=== PATIENT | female | born 1990 | race Hispanic/Latino ===

== ENCOUNTER 2018-04-11 15:49 | Emergency (ER) | payer MEDICAID ==
[2018-04-11] MEDS ORDERED: TETANUS/DIPHTHERIA TOXOID [ADULT] 0.5 ML VIAL IM ONE (16:15)
== END 2018-04-11 16:30 | disposition home or self-care (01) ==
LOC: EDH 15:49
DX: S01.511A Laceration without foreign body of lip, initial encounter (principal); Z72.0 Tobacco use; W51.XXXA Accidental striking against or bumped into by another person, initial encounter; Y93.9 Activity, unspecified; Y92.098 Other place in other non-institutional residence as the place of occurrence of the external cause; Y99.8 Other external cause status
CPT/HCPCS: 90471; 90714

== ENCOUNTER 2018-06-02 20:32 | Emergency (ER) | payer MEDICAID, OTHER ==
[2018-06-02] MEDS ORDERED: KETOROLAC TROMETHAMINE 30MG/ML ONE (21:06)
== END 2018-06-02 21:24 | disposition home or self-care (01) ==
LOC: EDH 20:32
DX: S29.012A Strain of muscle and tendon of back wall of thorax, initial encounter (principal); Z90.49 Acquired absence of other specified parts of digestive tract; Z98.890 Other specified postprocedural states; Z72.0 Tobacco use; X58.XXXA Exposure to other specified factors, initial encounter; Y93.89 Activity, other specified; Y92.89 Other specified places as the place of occurrence of the external cause; Y99.8 Other external cause status
CPT/HCPCS: 96372; 99283; J1885

== ENCOUNTER 2019-12-14 06:19 | Emergency (ER) | payer SELFPAY ==
[2019-12-14] MEDS ORDERED: FAMOTIDINE 20MG TAB 20 MG TAB ONE (06:43)
[2019-12-14] MEDS ORDERED: DiphenhydrAMINE HCL 50 MG/ML VIAL ONE (06:43)
[2019-12-14] MEDS ORDERED: PREDNISONE 20 MG TABLET ONE (06:44)
== END 2019-12-14 07:07 | disposition home or self-care (01) ==
LOC: EDH 06:19
DX: L50.9 Urticaria, unspecified (principal); T78.40XA Allergy, unspecified, initial encounter; Z98.890 Other specified postprocedural states; Z90.49 Acquired absence of other specified parts of digestive tract; Z72.0 Tobacco use; X58.XXXA Exposure to other specified factors, initial encounter; Z91.09 Other allergy status, other than to drugs and biological substances; Z91.038 Other insect allergy status
CPT/HCPCS: 96372; 99283; J1200

== ENCOUNTER 2020-04-30 05:56 | Emergency (ER) | payer MEDICAID ==
[2020-04-30] MEDS ORDERED: FAMOTIDINE 20MG TAB 20 MG TAB ONE (06:22)
[2020-04-30] MEDS ORDERED: DiphenhydrAMINE HCL 50 MG/ML VIAL ONE (06:23)
[2020-04-30] MEDS ORDERED: METHYLPREDNISOLONE SOD SUCC 125MG/2ML VIAL ONE (06:23)
[2020-04-30] MEDS ORDERED: ACETAMINOPHEN EXTRA STRENGTH 500 MG TABLET ONE (06:52)
== END 2020-04-30 07:00 | disposition home or self-care (01) ==
LOC: EDH 05:56
DX: L50.9 Urticaria, unspecified (principal); Z90.49 Acquired absence of other specified parts of digestive tract; Z98.890 Other specified postprocedural states; Z91.038 Other insect allergy status; Z88.8 Allergy status to other drugs, medicaments and biological substances
CPT/HCPCS: 96372 ×2; 99284; J1200; J2930

== ENCOUNTER 2020-05-05 22:22 | Emergency (ER) | payer MEDICAID ==
[2020-05-05] MEDS ORDERED: FAMOTIDINE 20MG TAB 20 MG TAB ONE (22:35)
[2020-05-05] MEDS ORDERED: DIPHENHYDRAMINE HCL 25 MG CAPSULE ONE (22:35)
[2020-05-05] MEDS ORDERED: PREDNISONE 20 MG TABLET ONE (23:02)
== END 2020-05-06 00:14 | disposition home or self-care (01) ==
LOC: EDH 22:22
DX: L50.0 Allergic urticaria (principal); R73.09 Other abnormal glucose; Z91.048 Other nonmedicinal substance allergy status
CPT/HCPCS: 81025; 82948; 99284; Q0163

== ENCOUNTER 2020-05-09 22:36 | Emergency (ER) | payer MEDICAID ==
[2020-05-09] MEDS ORDERED: ACETAMINOPHEN EXTRA STRENGTH 500 MG TABLET ONE (22:53)
== END 2020-05-09 22:59 | disposition home or self-care (01) ==
LOC: EDH 22:36
DX: S60.461A Insect bite (nonvenomous) of left index finger, initial encounter (principal); Z91.038 Other insect allergy status; W57.XXXA Bitten or stung by nonvenomous insect and other nonvenomous arthropods, initial encounter; Y93.89 Activity, other specified; Y92.89 Other specified places as the place of occurrence of the external cause; Y99.8 Other external cause status

== ENCOUNTER 2020-06-14 06:43 | Emergency (ER) | payer MEDICAID ==
[2020-06-14] MEDS ORDERED: KETOROLAC TROMETHAMINE 60 MG/2 ML VIAL ONE (07:29)
== END 2020-06-14 08:23 | disposition home or self-care (01) ==
LOC: EDH 06:43
DX: S02.5XXA Fracture of tooth (traumatic), initial encounter for closed fracture (principal); Z98.890 Other specified postprocedural states; Z90.49 Acquired absence of other specified parts of digestive tract; Z72.0 Tobacco use; Z91.09 Other allergy status, other than to drugs and biological substances; Z91.038 Other insect allergy status; X58.XXXA Exposure to other specified factors, initial encounter; Y93.89 Activity, other specified; Y92.89 Other specified places as the place of occurrence of the external cause; Y99.8 Other external cause status
CPT/HCPCS: 96372; 99283; J1885

== ENCOUNTER 2020-06-14 22:59 | Emergency (ER) | payer MEDICAID ==
[2020-06-14] MEDS ORDERED: ONDANSETRON ODT 4 MG TAB ONE (23:53)
[2020-06-14] MEDS ORDERED: HYDROCODONE/ACETAMINOPHEN 10/325 MG TAB ONE (23:53)
[2020-06-15] MEDS ORDERED: CLINDAMYCIN 900 MG/D5% WATER 50 ML IV ONE (00:28)
== END 2020-06-15 02:04 | disposition home or self-care (01) ==
LOC: EDH 22:59
DX: M27.2 Inflammatory conditions of jaws (principal); K08.89 Other specified disorders of teeth and supporting structures; Z90.49 Acquired absence of other specified parts of digestive tract; Z98.890 Other specified postprocedural states; Z91.09 Other allergy status, other than to drugs and biological substances; Z91.038 Other insect allergy status
CPT/HCPCS: 96365; 99284; J3490

== ENCOUNTER 2020-07-23 11:38 | Emergency (ER) | payer MEDICAID | END 2020-07-23 12:47 | disposition home or self-care (01) | LOC: EDH 11:38 | DX: B00.1 Herpesviral vesicular dermatitis (principal); Z90.49 Acquired absence of other specified parts of digestive tract; Z98.890 Other specified postprocedural states; Z72.0 Tobacco use; Z91.048 Other nonmedicinal substance allergy status; Z91.038 Other insect allergy status ==

== ENCOUNTER 2021-06-03 16:35 | Observation (INO) | payer MEDICAID ==
[~2021-06-03] VITALS: Ht 165.1 cm; Wt 87.9 kg
[2021-06-03] MEDS ORDERED: 0.9%NACL 1000ML 1,710 ML IV ONE (17:00)
[2021-06-03] MEDS ORDERED: ACETAMINOPHEN 500 MG TABLET PO ONE (17:00)
[2021-06-03] MEDS ORDERED: ONDANSETRON 4MG INJ IVP ONE (17:00)
[2021-06-03 17:56] LABS: BASOPHILS % (AUTO) 0.9 % (0.0-5.0); EOSINOPHILS % (AUTO) 0.1 % (0.0-8.0); HEMATOCRIT 46.4 % (36-48); LYMPHOCYTES % (AUTO) 4.6 % (21.0-51.0); MEAN CORPUSCULAR HEMOGLOBIN 30.4 pg (27.0-33.0); MEAN CORPUSCULAR HGB CONC 33.6 g/dL (32.0-36.0); MEAN CORPUSCULAR VOLUME 90.4 fL (79-99); MONOCYTES % (AUTO) 3.8 % (3.0-13.0); PLATELET COUNT (AUTO) 305 K/uL (130-400); RED BLOOD CELL COUNT(AUTO) 5.13 MIL/uL (4.00-5.50); RED CELL DISTRIBUTION WIDTH 12.7 % (11.0-15.5); WHITE BLOOD COUNT (AUTO) 18.5 K/uL (4.8-10.8)
[2021-06-03 18:05] LABS: INR 1.07 (0.85-1.15); PROTHROMBIN TIME 11.6 SEC (9.6-11.6)
[2021-06-03 18:07] LABS: PARTIAL THROMBOPLASTIN TIME 28.8 SEC (26.3-35.5)
[2021-06-03 18:27] LABS: CREATININE 0.8 mg/dL (0.5-1.5); POTASSIUM 3.5 mmol/L (3.5-5.1)
[2021-06-03] MEDS ORDERED: CEFTRIAXONE 2GM VIAL IVP ONE (18:30)
[2021-06-03 18:34] LABS: APPEARANCE,URINE Clear (CLEAR); BILIRUBIN,URINE Negative (NEGATIVE); COLOR,URINE Yellow (YELLOW); GLUCOSE, URINE (UA) Negative (NEGATIVE); KETONES,URINE Trace mg/dL (NEGATIVE); LEUKOCYTE ESTERASE ,URINE Trace (NEGATIVE); NITRATE,URINE Negative (NEGATIVE); OCCULT BLOOD,URINE Nonhemolyzed Trace (NEGATIVE); PH,URINE 7.5 (5.0-8.0); PROTEIN,URINE Negative (NEGATIVE)
[2021-06-03 18:36] LABS: ALBUMIN 4.2 g/dL (3.5-5.0); BILIRUBIN,TOTAL 0.9 mg/dL (0.2-1.0); TOTAL PROTEIN, SERUM 8.4 g/dL (6.0-8.3)
[2021-06-03 18:43] LABS: BACTERIA,URINE Few /HPF (None Seen); MUCUS,URINE Few LPF (None Seen); SQUAMOUS EPITHELIAL CELL,UR Few /HPF (0-2)
[2021-06-03] MEDS ORDERED: ACETAMINOPHEN 325 MG TAB PO PRN (20:00)
[2021-06-03] MEDS ORDERED: NITROGLYCERIN 0.4 MG SL TAB SL PRN (20:00)
[2021-06-03] MEDS ORDERED: ONDANSETRON 4MG INJ IV PRN (20:00)
[2021-06-03] MEDS ORDERED: IBUPROFEN 800 MG TAB PO ONE (21:00)
[2021-06-03] MEDS: FAMOTIDINE 20MG TAB PO SCH (21:07)
[2021-06-03 21:17] LABS: AMPHET/METH SCREEN,URINE NEGATIVE (NEGATIVE); BARBITURATE SCREEN, URINE NEGATIVE (NEGATIVE); BENZODIAZEPINES SCREEN,URINE NEGATIVE (NEGATIVE); CANNABINOID SCREEN,URINE POSITIVE (NEGATIVE); COCAINE SCREEN,URINE POSITIVE (NEGATIVE); OPIATE SCREEN,URINE NEGATIVE (NEGATIVE); PHENCYCLIDINE SCREEN,URINE NEGATIVE (NEGATIVE)
[2021-06-03] MEDS ORDERED: PHARMACY COMMUNICATION MISC PRN (22:30)
[2021-06-03] MEDS ORDERED: LORAZEPAM 2 MG/ML 1 ML VIAL IVP PRN ×2 (22:30)
[2021-06-03] MEDS ORDERED: CHLORDIAZEPOXIDE HCL 25 MG CAP PO PRN ×2 (22:30)
[2021-06-03] MEDS ORDERED: THIAMINE HCL 100 MG/ML 2ML VIAL ONE (23:52)
[2021-06-03] MEDS ORDERED: M.V.I. IV [ADULT] 10 ML VIAL IV ONE (23:53)
[2021-06-03] MEDS ORDERED: FOLIC ACID 5 MG/ML VIAL ONE (23:54)
[2021-06-04] MEDS: THIAMINE HCL 100 MG, FOLIC ACID 1 MG, M.V.I. IV [ADULT] 10 ML in 0.9%NACL 1000ML 1,000 ML IV SCH ×2 (00:07→14:25)
[2021-06-04 03:30] VITALS: BP 152/70
[2021-06-04 04:34] LABS: BASOPHILS % (AUTO) 0.3 % (0.0-5.0); EOSINOPHILS % (AUTO) 0.4 % (0.0-8.0); HEMATOCRIT 43.7 % (36-48); LYMPHOCYTES % (AUTO) 16.9 % (21.0-51.0); MEAN CORPUSCULAR HEMOGLOBIN 30.6 pg (27.0-33.0); MEAN CORPUSCULAR HGB CONC 32.7 g/dL (32.0-36.0); MEAN CORPUSCULAR VOLUME 93.6 fL (79-99); MONOCYTES % (AUTO) 6.4 % (3.0-13.0); NEUTROPHILS % (AUTO) 75.6 % (40.0-77.0); PLATELET COUNT (AUTO) 260 K/uL (130-400); RED BLOOD CELL COUNT(AUTO) 4.67 MIL/uL (4.00-5.50); WHITE BLOOD COUNT (AUTO) 14.7 K/uL (4.8-10.8)
[2021-06-04 04:56] LABS: ALBUMIN 3.2 g/dL (3.5-5.0); BILIRUBIN,TOTAL 0.6 mg/dL (0.2-1.0); CREATININE 0.7 mg/dL (0.5-1.5); MAGNESIUM 1.9 mg/dL (1.80-2.40); PHOSPHORUS 3.5 mg/dL (2.5-4.9); POTASSIUM 3.5 mmol/L (3.5-5.1); TOTAL PROTEIN, SERUM 6.8 g/dL (6.0-8.3)
[2021-06-04] MEDS: ACETAMINOPHEN 325 MG TAB PO PRN ×2 (07:50→14:10)
[2021-06-04 08:00] VITALS: BP 113/67
[2021-06-04] MEDS: BENZOCAINE/MENTH/CETYLPYRD CL 1 EACH LOZENGE MM PRN (09:08)
[2021-06-04] MEDS: FAMOTIDINE 20MG TAB PO SCH ×2 (09:08→20:21)
[2021-06-04] MEDS: ENOXAPARIN SODIUM 40 MG/0.4 ML SYRINGE SQ SCH (09:09)
[2021-06-04] MEDS ORDERED: LORAZEPAM 2 MG/ML 1 ML VIAL IVP PRN (10:30)
[2021-06-04 12:00] VITALS: BP 110/74
[2021-06-04] MEDS ORDERED: DEXAMETHASONE SOD PHOSPHATE 4 MG/ML 1ML VIAL IVP SCH (14:30)
[2021-06-04] MEDS ORDERED: PREDNISONE 20 MG TABLET PO SCH (14:30)
[2021-06-04] MEDS ORDERED: TRAMADOL HCL 50 MG TABLET PO SCH (14:30)
[2021-06-04] MEDS ORDERED: IOHEXOL-350 75 ML VIAL IV ONE (15:15)
[2021-06-04 16:00] VITALS: BP 132/86
[2021-06-04] MEDS ORDERED: CEFTRIAXONE 2GM VIAL IVP SCH (20:00)
[2021-06-04 20:06] VITALS: BP 138/75
[2021-06-04 23:10] VITALS: BP 146/73
[2021-06-04] MEDS: ZOSYN 3.375GM +NS 50ML IV SCH (23:22)
[2021-06-05 04:04] VITALS: BP 154/76
[2021-06-05] MEDS ORDERED: TRAMADOL HCL 50 MG TABLET PO PRN (05:00)
[2021-06-05 06:28] LABS: BASOPHILS % (AUTO) 0.3 % (0.0-5.0); EOSINOPHILS % (AUTO) 0.1 % (0.0-8.0); HEMATOCRIT 41.9 % (36-48); MEAN CORPUSCULAR HGB CONC 33.2 g/dL (32.0-36.0); MEAN CORPUSCULAR VOLUME 93.3 fL (79-99); MONOCYTES % (AUTO) 7.6 % (3.0-13.0); NEUTROPHILS % (AUTO) 79.7 % (40.0-77.0); PLATELET COUNT (AUTO) 275 K/uL (130-400); RED BLOOD CELL COUNT(AUTO) 4.49 MIL/uL (4.00-5.50); RED CELL DISTRIBUTION WIDTH 12.5 % (11.0-15.5); WHITE BLOOD COUNT (AUTO) 14.5 K/uL (4.8-10.8)
[2021-06-05 06:36] LABS: HEMOGLOBIN A1C 5.8 % (4.0-6.0)
[2021-06-05 06:37] LABS: CREATININE 0.5 mg/dL (0.5-1.5); POTASSIUM 3.7 mmol/L (3.5-5.1)
[2021-06-05] MEDS: BENZOCAINE/MENTH/CETYLPYRD CL 1 EACH LOZENGE MM PRN (07:55)
[2021-06-05] MEDS: ZOSYN 3.375GM +NS 50ML IV SCH (07:58)
[2021-06-05 08:00] VITALS: BP 115/62
[2021-06-05] MEDS: FAMOTIDINE 20MG TAB PO SCH (09:33)
[2021-06-05] MEDS: ENOXAPARIN SODIUM 40 MG/0.4 ML SYRINGE SQ SCH (09:34)
[2021-06-05] MEDS ORDERED: DEXAMETHASONE SOD PHOSPHATE 4 MG/ML 1ML VIAL IVP SCH (10:00)
[2021-06-05 12:00] VITALS: BP 138/88
[2021-06-05] MEDS ORDERED: AMOX-429 PO (13:11)
== END 2021-06-05 14:20 | disposition home or self-care (01) ==
LOC: EDH 16:35 → INTOOBSV 19:32 → EDHIP 19:32 → 3CH 06-04 03:03
PROVIDERS: ADMIT Internal Medicine; ATTEND Internal Medicine
DX: A41.9 Sepsis, unspecified organism (principal); Z20.822 Contact with and (suspected) exposure to COVID-19; N39.0 Urinary tract infection, site not specified; J03.90 Acute tonsillitis, unspecified; D72.829 Elevated white blood cell count, unspecified; F19.10 Other psychoactive substance abuse, uncomplicated; F17.210 Nicotine dependence, cigarettes, uncomplicated; F12.10 Cannabis abuse, uncomplicated; F14.10 Cocaine abuse, uncomplicated; L03.90 Cellulitis, unspecified; E66.9 Obesity, unspecified; R42 Dizziness and giddiness; Z68.37 Body mass index [BMI] 37.0-37.9, adult; Z79.899 Other long term (current) drug therapy; Z98.891 History of uterine scar from previous surgery
CPT/HCPCS: 36415 ×3; 70492; 71045; 80048; 80053 ×2; 80305; 81001; 82550 ×2; 83036; 83605; 83735; 84100; 84145; 84484 ×2; 84703; 85025 ×3; 85610; 85651; 85730; 86140; 87040 ×2; 87088; 87635; 87804 ×2; 87880; 93005; 96361; 96365; 96366 ×3; 96368; 96372 ×2; 96374; 96375 ×3; 99291; C9803; G0378; J0696; J1100; J1650 ×2; J2060; J2405; J2543 ×3; J3411 ×4; J3490 ×5; J7030 ×4; Q9967

== ENCOUNTER 2024-05-13 20:00 | Emergency (ER) | payer MEDICAID ==
[~2024-05-13] VITALS: Ht 165.1 cm; Wt 104.3 kg
[~2024-05-13 20:00] MED LIST: AMOX-429 PO
[2024-05-13] MEDS: ketOROlac 30MG VIAL (30MG/ML) IM STA (20:23)
[2024-05-13] MEDS: cefTRIAXone 1G VIAL IM STA (20:23)
[2024-05-13 20:35] VITALS: BP 137/74; PULSE 81; RESP 18; TEMP 98.8; O2SAT 98
[2024-05-13] MEDS ORDERED: IBUP-2071 PO (20:35)
--- NOTE | 2024-05-13 20:38 | ERN ---
ED Note History of Present Illness Stated Complaint: TOOTH PAIN Chief Complaint: Tooth Ache/Pain Time Seen by MD: 20:01 Time Seen by Midlevel: 20:01 Dictation: Patient is a 33-year-old female presents to the ED for evaluation of toothache for the past three days. Patient reports she has already signed appointment with PCP for referral to dentist. Patient reports appointment is on Sunday. Patient reports PCP sent prescription for amoxicillin which patient is currently on. Patient reports no relief with ibuprofen. Denies fever, chills, cough, congestion Allergies: Coded Allergies: No Known Drug Allergies (Unverified Allergy, Unknown, 03/28/19) Home Meds Active Scripts Amoxicillin/Potassium Clav (Augmentin 875-125 Tablet) 1 Each Tablet, 1 EACH PO BID for 6 Days, #12 TAB 0 Refills Prov:LISA RUSSELL MD 06/05/21 Past Medical History Past Medical History: No Pertinent History Surgical History: Appendectomy, Family History: Negative Social History: Negative History: Not Applicable LMP: Apr 11, 2024 RN Note Reviewed/Agreed w/PFSH: Yes Review of System Dictation Constitutional: Negative for fever,chills, and weight loss Eyes: Negative for injury, pain,redness, and discharge ENT: Negative for injury,pain or swelling Cardiovascular: Negative for chest pain, palpitations, and edema Respiratory: Negative for shortness of breath, cough, and wheezing, Abdomen/GI: Negative for abdominal pain, nausea, vomiting, diarrhea, and constipation Back: Negative for injury and pain : Negative for injury, bleeding and discharge MS/Extremity: Negative for injury and deformity Skin: Negative for rash, and discoloration Neuro: Negative for headache, weakness, numbness, tingling, and seizure Psych: Negative for suicide ideation, homicidal ideation, and hallucinations Review of Systems: was completed Initial Vital Sign VS Vital Signs Date Time Temp Pulse Resp B/P (MAP) Pulse Ox O2 Delivery O2 Flow Rate FiO2 05/13/24 20:02 98.8 98 18 165/90 98 Room Air 05/13/24 20:07 0 21 Physical Exam Dictation General: awake, alert, NAD Head/Face: Normocephalic, atraumatic Eyes: PERRL, EOMI, vision at baseline ENT: oral cavity clear, TMs clear, dental carries with dental abscess Neck: Trachea midline, supple, no nuchal rigidity Cardiovascular: RRR, normal S1/S2, No MRGs, no JVD Respiratory: CTAB, no respiratory distress, No rales or wheezes Abdomen: Soft, non-tender, non-distended, normal bowel sounds, no guarding or rebound. Skin: Warm, dry, normal turgor, no rash MS/Extremity: Pulses equal, no cyanosis, neurovascular intact, FROM Neuro: COAx4, GCS 15, strength 5/5, CN 2-12 intact, normal cerebellar exam, normal gait, Psych: Normal behavior, mood, and affect normal ED Course ED Course Orders Procedure Category Date Status Time Ketorolac PHA 05/13/24 Complete Tromethamine 30mg/Ml 20:13 Ceftriaxone 1g Vial PHA 05/13/24 Complete (Rocephine 1g Inj) 20:13 Current Medications Medications (Trade) Dose Ordered Sig/Maria Esther Route PRN Reason Start Time Stop Time Status Last Admin Dose Admin Ceftriaxone Sodium (ROCEphine 1G INJ) 1 gm ONCE STAT IM 05/13/24 20:13 05/13/24 20:15 DC 05/13/24 20:23 Ketorolac Tromethamine (toRADol) 30 mg ONCE STAT IM 05/13/24 20:13 05/13/24 20:15 DC 05/13/24 20:23 Vital Signs Date Time Temp Pulse Resp B/P (MAP) Pulse Ox O2 Delivery O2 Flow Rate FiO2 05/13/24 20:07 98.8 98 18 165/90 98 Room Air* 0 21 05/13/24 20:02 98.8 98 18 165/90 98 Room Air Medical Decision Making MDM MDM: Differential diagnosis: Dental abscess, dental caries, toothache, Need for hospitalization: Patient does meet criteria for hospitalization. Need for emergency major/minor surgery: No I independently interpreted the test that were performed, results were reviewed by me and considered findings on radiology if ordered. Medical management and examination interpretation discussions were had by me with other qualified healthcare professionals as indicated for the patient's care. Patient has multiple caries with a dental abscess. Patient was given dose of Toradol and Rocephin here in the ER. Patient will be discharged home in stable condition recommended to follow up with dentist. Patient recommended to continue taking amoxicillin as prescribed by PCP. Patient afebrile, nonseptic appearing. Patient verbalized understanding, agreed with the plan, and all questions were answered at this time. DX & DISP Disposition: Discharge Departure Impression: Primary Impression: Dental abscess Additional Impressions: Tooth ache, Dental caries Condition: Stable Scripts Ibuprofen (Ibuprofen) 800 Mg Tablet 800 MG PO Q8H PRN for PAIN, #30 TAB 0 Refills Prov: BRIANNE PALMA 05/13/24 Referrals: THERESA POTTS (PCP) I have reviewed the case, and I agree with, Diagnosis and Plan BRIANNE PALMA May 13, 2024 20:38
== END 2024-05-13 20:38 | disposition home or self-care (01) ==
LOC: EDH 20:00
DX: K04.7 Periapical abscess without sinus (principal); K02.9 Dental caries, unspecified; Z79.899 Other long term (current) drug therapy; Z90.49 Acquired absence of other specified parts of digestive tract; Z98.890 Other specified postprocedural states
CPT/HCPCS: 99284; 96372 ×2; J0696; J1885

== ENCOUNTER 2024-10-22 02:04 | Emergency (ER) | payer MEDICAID ==
[~2024-10-22] VITALS: Ht 165.1 cm; Wt 114.3 kg
[~2024-10-22 02:04] MED LIST changes: +IBUP-2071 PO
[2024-10-22 02:32] LABS: RAPID GROUP A STREP negative (NEGATIVE)
--- NOTE | 2024-10-22 02:35 | ERN ---
ED Note History of Present Illness Stated Complaint: C/O COUGH, BODYACHES,FEVER,CHILLS,SORE THROAT Chief Complaint: Generalized Body Aches Time Seen by MD: 02:20 Time Seen by Midlevel: 02:25 Dictation: 34-YEAR-OLD FEMALE WITH NO PAST MEDICAL HISTORY COMING IN WITH COMPLAINTS OF FLU-LIKE SYMPTOMS. PATIENT STATES THIS HAS BEEN GOING ON SINCE SUNDAY. HER SON WAS SICK TWO WEEKS AGO WITH SIMILAR SYMPTOMS. PATIENT STATES SHE HAS TRIED TAKING TYLENOL, NIGHT AND FLU BUT THE FEVERS COME BACK. PATIENT IS CONCERNED BECAUSE SHE SAYS THAT LAST TIME SHE HAD THESE SYMPTOMS HERE TO BE ADMITTED FOR UTI. TOLERATE THIS TIME DENIES HAVING ANY DYSURIA HEMATURIA, ABDOMINAL PAIN, NAUSEA OR VOMITING. Allergies: Coded Allergies: No Known Drug Allergies (Unverified Allergy, Unknown, 03/28/19) Home Meds Active Scripts Cephalexin Monohydrate (Keflex) 500 Mg Cap, 500 MG PO QID for 7 Days, #28 CAP Prov:LUZ DALY MD 10/22/24 Ibuprofen (Ibuprofen) 800 Mg Tablet, 800 MG PO Q8H PRN for PAIN, #30 TAB 0 Refills Prov:BRIANNE PALMA 05/13/24 Amoxicillin/Potassium Clav (Augmentin 875-125 Tablet) 1 Each Tablet, 1 EACH PO BID for 6 Days, #12 TAB 0 Refills Prov:LISA RUSSELL MD 06/05/21 Past Medical History Past Medical History: No Pertinent History Surgical History: Appendectomy, Family History: Negative Social History: Negative History: Not Applicable LMP: Sep 29, 2024 Review of System Dictation CONSTITUTIONAL: NEGATIVE FOR FEVER,CHILLS, AND WEIGHT LOSS EYES: NEGATIVE FOR INJURY, PAIN,REDNESS, AND DISCHARGE ENT: NEGATIVE FOR INJURY,PAIN OR SWELLING CARDIOVASCULAR: NEGATIVE FOR CHEST PAIN, PALPITATIONS, AND EDEMA RESPIRATORY: NEGATIVE FOR SHORTNESS OF BREATH, COUGH, AND WHEEZING, ABDOMEN/GI: NEGATIVE FOR ABDOMINAL PAIN, NAUSEA, VOMITING, DIARRHEA, AND CONSTIPATION BACK: NEGATIVE FOR INJURY AND PAIN : NEGATIVE FOR INJURY, BLEEDING AND DISCHARGE MS/EXTREMITY: NEGATIVE FOR INJURY AND DEFORMITY SKIN: NEGATIVE FOR RASH, AND DISCOLORATION NEURO: NEGATIVE FOR HEADACHE, WEAKNESS, NUMBNESS, TINGLING, AND SEIZURE PSYCH: NEGATIVE FOR SUICIDE IDEATION, HOMICIDAL IDEATION, AND HALLUCINATIONS Review of Systems: was completed Initial Vital Sign VS Vital Signs Date Time Temp Pulse Resp B/P (MAP) Pulse Ox O2 Delivery O2 Flow Rate FiO2 10/22/24 02:06 102.6 118 20 162/94 98 Room Air 10/22/24 04:03 0 21 Physical Exam Dictation GENERAL: AWAKE, ALERT, NAD HEAD/FACE: NORMOCEPHALIC, ATRAUMATIC EYES: PERRL, EOMI, VISION AT BASELINE ENT: ORAL CAVITY CLEAR, TMS CLEAR, NO SIGNS OF INFECTION NECK: TRACHEA MIDLINE, SUPPLE, NO NUCHAL RIGIDITY CARDIOVASCULAR: RRR, NORMAL S1/S2, NO MRGS, NO JVD RESPIRATORY: CTAB, NO RESPIRATORY DISTRESS, NO RALES OR WHEEZES ABDOMEN: SOFT, NON-TENDER, NON-DISTENDED, NORMAL BOWEL SOUNDS, NO GUARDING OR REBOUND. SKIN: WARM, DRY, NORMAL TURGOR, NO RASH MS/EXTREMITY: PULSES EQUAL, NO CYANOSIS, NEUROVASCULAR INTACT, FROM NEURO: COAX4, GCS 15, STRENGTH 5/5, CN 2-12 INTACT, NORMAL CEREBELLAR EXAM, NORMAL GAIT, PSYCH: NORMAL BEHAVIOR, MOOD, AND AFFECT NORMAL Results (Laboratory/Radiology) Laboratory/Radiology Laboratory Tests Test 10/22/24 02:08 10/22/24 03:25 10/22/24 03:47 Influenza Type A Antigen Negative For Type A Influenza Type B Antigen Negative For Type B SARS-CoV-2, RNA, NAAT NEGATIVE SARS CoV-2 Group A Streptococcus Rapid negative (NEGATIVE) Urine Color LIGHT-YELLOW (YELLOW) Urine Appearance CLEAR (CLEAR) Urine pH 5.5 (5.0-8.0) Urine Specific [place] 1.027 (1.001-1.031) Urine Protein NEGATIVE mg/dL (NEGATIVE) Urine Glucose (UA) NEGATIVE mg/dL (NEGATIVE) Urine Ketones NEGATIVE mg/dL (NEGATIVE) Urine Occult Blood SMALL (NEGATIVE) H Urine Nitrate NEGATIVE (NEGATIVE) Urine Bilirubin NEGATIVE mg/dL (NEGATIVE) Urine Urobilinogen 0.2 mg/dL (0.2-1.0) Urine Leukocyte Esterase NEGATIVE Laura/uL Urine RBC 2-5 /HPF (0-1) H Urine WBC 0-1 /HPF (0-1) Urine Squamous Epithelial Cells FEW /HPF (0-2) Urine Bacteria RARE /HPF (None Seen) White Blood Count 13.6 K/uL (4.8-10.8) H Red Blood Count 4.92 MIL/uL (4.00-5.50) Hemoglobin 15.1 g/dL (12.0-16.0) Hematocrit 44.5 % (36-48) Mean Corpuscular Volume 90.4 fL (79-99) Mean Corpuscular Hemoglobin 30.7 pg (27.0-33.0) Mean Corpuscular Hemoglobin Concent 33.9 g/dL (32.0-36.0) Red Cell Distribution Width 13.0 % (11.0-15.5) Platelet Count 258 K/uL (130-400) Mean Platelet Volume 10.3 fL (7.5-10.5) Immature Granulocyte % (Auto) 0.4 % (0-1) Neutrophils (%) (Auto) 76.6 % (40.0-77.0) Lymphocytes (%) (Auto) 15.0 % (21.0-51.0) L Monocytes (%) (Auto) 6.9 % (3.0-13.0) Eosinophils (%) (Auto) 0.9 % (0.0-8.0) Basophils (%) (Auto) 0.2 % (0.0-5.0) Neutrophils # (Auto) 10.4 K/uL (1.8-7.7) H Lymphocytes # (Auto) 2.0 K/uL (1.0-4.8) Monocytes # (Auto) 0.9 K/uL (0.1-1.0) Eosinophils # (Auto) 0.12 K/uL (0.00-0.70) Basophils # (Auto) 0.03 K/uL (0.00-0.20) Absolute Immature Granulocyte (auto 0.06 K/uL (0-1) Nucleated Red Blood Cells 0.0 % (0.0-0.19) Sodium Level 137 mmol/L (136-145) Potassium Level 4.0 mmol/L (3.5-5.1) Chloride Level 102 mmol/L (101-111) Carbon Dioxide Level 23 mmol/L (21-32) Blood Urea Nitrogen 14 mg/dL (7-18) Creatinine 0.7 mg/dL (0.5-1.0) Glomerular Filtration Rate Calc 116 mL/min (>90) Random Glucose 127 mg/dL (70-105) H Total Calcium 9.4 mg/dL (8.5-10.1) Human Chorionic Gonadotropin, Quant 1 mIU/mL (0-5) ED Course ED Course Orders Procedure Category Date Status Time Covid Rna Naat LAB 10/22/24 Complete 02:10 Influenza Type A & B, LAB 10/22/24 Complete Rapid 02:10 Rapid (Group A Strep) LAB 10/22/24 Complete 02:10 Cbc With Differential LAB 10/22/24 Complete 02:25 Basic Metabolic Panel LAB 10/22/24 Complete 02:25 Urinalysis Profile LAB 10/22/24 Complete 02:25 Chest 1vw RAD 10/22/24 Taken 02:25 Acetaminophen 500mg PHA 10/22/24 Complete Tab (Tylenol 500mg T 02:53 Hcg,Quantitative LAB 10/22/24 Complete 03:47 Cefazolin Sodium 1 Gm PHA 10/22/24 Complete Vial (Ancef 1 Gm V 04:38 Current Medications Medications (Trade) Dose Ordered Sig/Maria Esther Route PRN Reason Start Time Stop Time Status Last Admin Dose Admin Acetaminophen (TYLenol 500MG TAB) 1,000 mg ONCE STAT PO 10/22/24 02:53 10/22/24 02:55 DC 10/22/24 03:26 Cefazolin Sodium (ANCEF 1 gm vial) 1 gm ONCE STAT IVP 10/22/24 04:38 10/22/24 04:41 DC Vital Signs Date Time Temp Pulse Resp B/P (MAP) Pulse Ox O2 Delivery O2 Flow Rate FiO2 10/22/24 04:03 100.2 120 18 128/71 97 Room Air* 0 21 10/22/24 03:26 102.4 10/22/24 02:06 102.6 118 20 162/94 98 Room Air Medical Decision Making [facility] Standard workup the patient does have a UTI with a slight elevation in her white blood cell count. I will prescribe the Keflex for five days. In addition I will do an IV push of 1 g of Ancef before she leaves. DX & DISP Disposition: Discharge Departure Impression: Primary Impression: Acute UTI Condition: Stable Scripts Cephalexin Monohydrate (Keflex) 500 Mg Cap 500 MG PO QID for 7 Days, #28 CAP Prov: LUZ DALY MD 10/22/24 Additional Instructions: Please see your primary care physician if your symptoms do not get better. Referrals: THERESA POTTS (PCP) NOMAN MALIK NP Oct 22, 2024 02:35 LUZ DALY MD Oct 22, 2024 04:35
[2024-10-22 02:36] LABS: SARS-CoV-2, RNA, NAAT NEGATIVE SARS CoV-2 (NEGATIVE)
[2024-10-22 02:42] LABS: INFLUENZA TYPE A Negative For Type A (NEGATIVE); INFLUENZA TYPE B Negative For Type B (NEGATIVE)
[2024-10-22] MEDS: acetaMINOPHEN 500 MG TABLET PO STA (03:26)
--- NOTE | 2024-10-22 03:28 | NUR ---
PATIENT TRYING TO OBTAIN A URINE SAMPLE.
[2024-10-22 03:51] LABS: APPEARANCE,URINE CLEAR (CLEAR); BILIRUBIN,URINE NEGATIVE (NEGATIVE); COLOR,URINE LIGHT-YELLOW (YELLOW); GLUCOSE, URINE (UA) NEGATIVE (NEGATIVE); KETONES,URINE NEGATIVE (NEGATIVE); LEUKOCYTE ESTERASE ,URINE NEGATIVE Leu/uL (NEGATIVE); NITRATE,URINE NEGATIVE (NEGATIVE); OCCULT BLOOD,URINE SMALL (NEGATIVE); PH,URINE 5.5 (5.0-8.0); PROTEIN,URINE NEGATIVE (NEGATIVE); UROBILINOGEN,URINE 0.2 mg/dL (0.2-1.0)
[2024-10-22 03:54] LABS: ADD UA MICROSCOPIC YES
[2024-10-22 03:55] LABS: BACTERIA,URINE RARE /HPF (None Seen); MUCUS,URINE RARE LPF (None Seen); SQUAMOUS EPITHELIAL CELL,UR FEW /HPF (0-2); WBC,URINE 0-1 /HPF (0-1)
[2024-10-22 03:56] LABS: BASOPHILS # (AUTO) 0.03 K/uL (0.00-0.20); BASOPHILS % (AUTO) 0.2 % (0.0-5.0); EOSINOPHILS # (AUTO) 0.12 K/uL (0.00-0.70); EOSINOPHILS % (AUTO) 0.9 % (0.0-8.0); HEMATOCRIT 44.5 % (36-48); IMMATURE GRANULOCYTE ABSOLUTE 0.06 K/uL (0-1); MEAN CORPUSCULAR HEMOGLOBIN 30.7 pg (27.0-33.0); MEAN CORPUSCULAR HGB CONC 33.9 g/dL (32.0-36.0); MEAN CORPUSCULAR VOLUME 90.4 fL (79-99); MONOCYTES # (AUTO) 0.9 K/uL (0.1-1.0); MONOCYTES % (AUTO) 6.9 % (3.0-13.0); NEUTROPHILS # (AUTO) 10.4 K/uL (1.8-7.7); NEUTROPHILS % (AUTO) 76.6 % (40.0-77.0); PLATELET COUNT (AUTO) 258 K/uL (130-400); RED BLOOD CELL COUNT(AUTO) 4.92 MIL/uL (4.00-5.50); WHITE BLOOD COUNT (AUTO) 13.6 K/uL (4.8-10.8)
[2024-10-22 04:04] LABS: CREATININE 0.7 mg/dL (0.5-1.0)
[2024-10-22 04:09] VITALS: TEMP 100.3
[2024-10-22] MEDS ORDERED: CEPH500B PO (04:38)
[2024-10-22] MEDS: ceFAZolin SODIUM 1 GM VIAL IVP STA (04:43)
[2024-10-22 04:51] VITALS: BP 124/78; PULSE 110; RESP 18; TEMP 99.5; O2SAT 98
--- NOTE | 2024-10-22 09:10 | HMCIMG ---
CHEST 1VW HISTORY: Cough COMPARISON: 06/03/2021 FINDINGS: A frontal projection of the chest was obtained. No acute pulmonary infiltrates is seen. The heart is normal in size. Prominent interstitial markings are seen. No evidence of aortic calcification is seen. IMPRESSION: 1. No acute pulmonary infiltrate is seen.
[2024-10-23] MEDS ORDERED: AMOX1TAB16 PO (09:40)
== END 2024-10-22 05:00 | disposition home or self-care (01) ==
LOC: EDH 02:04
DX: R10.2 Pelvic and perineal pain (principal); N39.0 Urinary tract infection, site not specified; Z90.49 Acquired absence of other specified parts of digestive tract; Z20.822 Contact with and (suspected) exposure to COVID-19
CPT/HCPCS: 99284; 96374; 71045; 87635; 80048; 84702; 85025; 87880; 87804 ×2; 81001; 36415; J0690

== ENCOUNTER 2024-10-23 08:48 | Emergency (ER) | payer MEDICAID ==
[~2024-10-23] VITALS: Ht 165.1 cm; Wt 113.4 kg
[~2024-10-23 08:48] MED LIST changes: +CEPH500B PO
[2024-10-23 08:50] VITALS: BP 145/88; PULSE 88; RESP 20; TEMP 97.6
[2024-10-23] MEDS ORDERED: AMOX1TAB16 PO (09:40)
--- NOTE | 2024-10-23 09:40 | ERN ---
General Chief Complaint: Abscess Stated Complaint: ABSCESS Time Seen by MD: 08:49 History of Present Illness Initial Comments 34F presents for marylu-anal abscess. Has been presents for a few days. Last night it started draining on it's own. There is approximately 1" in diameter abscess to L gluetus. Not deep, no tracking. Patient reports fever a few days ago. Allergies: Coded Allergies: No Known Drug Allergies (Unverified Allergy, Unknown, 03/28/19) Home Meds Active Scripts Amoxicillin/Potassium Clav (Amox Tr-K Clv 875-125 mg Tab) 875 Mg-125 Mg Tablet, 1 TAB PO BID for 10 Days, #20 TAB 0 Refills Prov:CATHRYN HEIN DO 10/23/24 Cephalexin Monohydrate (Keflex) 500 Mg Cap, 500 MG PO QID for 7 Days, #28 CAP Prov:LUZ DALY MD 10/22/24 Ibuprofen (Ibuprofen) 800 Mg Tablet, 800 MG PO Q8H PRN for PAIN, #30 TAB 0 Refills Prov:BRIANNE PALMA 05/13/24 Amoxicillin/Potassium Clav (Augmentin 875-125 Tablet) 1 Each Tablet, 1 EACH PO BID for 6 Days, #12 TAB 0 Refills Prov:LISA RUSSELL MD 06/05/21 Past Medical History Past Medical History: No Pertinent History Past Surgical History: Appendectomy, Family History Family History: Negative Social History Social History: Negative Female( History) History: Not Applicable LMP: Oct 02, 2024 : 2 Para: 2 ROS Dictation CONSTITUTIONAL: No chills, no fever, no weakness, no diaphoresis, no malaise. HEAD/FACE: No signs of trauma. EENT: No eye pain, no blurred vision, no tearing, no double vision, no ear pain, no ear discharge, no nose pain, no nasal congestion, no throat pain, no throat swelling, no mouth pain. RESPIRATORY: No cough, no orthopnea, no SOB, no stridor, no wheezing. CARDIOVASCULAR: No chest pain, no edema, no palpitations, no syncope. GASTROINTESTINAL/ABDOMINAL: No abdominal pain, no constipation, no diarrhea, no nausea, no vomiting. GENITOURINARY: No abnormal discharge, no dysuria, no frequent urination, no hematuria. Perianal abscess pain MUSCULOSKELETAL: No back pain, no gout, no joint pain, no joint swelling, no muscle pain, no muscle stiffness, no neck pain. INTEGUMENTARY: No change in color, no change in hair/nails, no dryness, no lesion, no lumps, no rash. NEUROLOGICAL/PSYCH: No anxiety, not depressed, no emotional problem, no headache, no numbness, no pre-existing deficit, no history of seizures, no tremors, no weakness. HEMATOLOGIC/LYMPHATIC: Not anemic, no history of blood clots, no apparent bleeding, no bruising, glands not swollen. All Systems Negative, Except as Noted. Physical Exam Physical Exam Dictation VITAL SIGNS: Reviewed. GENERAL APPEARANCE: Alert, oriented x3, no acute distress, obese. HEAD AND FACE: Non-traumatic. EYES: PERRL, pink conjunctivas, eyelid no trauma, anterior chamber clear. EARS: Pinnas intact and no signs of trauma or erythema. Ear canals clear and no discharge. TMs no erythema. NOSE: No discharge, no bleeding. OROPHARYNX: Mouth normal, teeth no caries, tongue pink. Pharynx clear, no erythema. Tonsils no exudates, no abscesses noted. Mucous membrane moist. NECK: Supple, non-tender, no thyromegaly, no masses, no JVD, no bruits. BREAST: Deferred. CHEST: No tenderness, no crepitus, no paradoxical movement, no retractions. LUNGS: Clear, well-ventilated, symmetric, no rales, no wheezing, no rhonchi, no stridor, good breath sounds bilaterally. HEART: Regular rate, regular rhythm, no murmur, no gallops. VASCULAR: No peripheral edema. ABDOMEN: Soft, positive bowel sounds, nondistended, no guarding, nontender, no rebound, no masses no hepatomegaly, no splenomegaly, no Woodson's sign, no hernias. RECTAL: Perianal abscess. Does not appear to go near the rectum no tracking superficial draining already GENITAL: Deferred. NEUROLOGICAL: Normal speech, gross motor function intact, gross sensory function intact. MUSCULOSKELETAL: Neck nontender, full range of motion, back nontender, full range of motion. EXTREMITIES: Nontender, full range of motion. SKIN: Color pink, dry, no turgor, no rash, no lacerations, no abrasions, no contusions. LYMPHATICS: Deferred. MDM CC: Perianal discomfort abscess Historian: Patient Comorbidities: Obesity Limitations by social determinants of health: None Differential diagnosis: Abscess On clinical exam that is perianal, does not track, no perirectal, no systemic illness Vital signs stable I and D performed no complication We will DC with Augmentin ED Course Orders Procedure Category Date Status Time Lidocaine Hcl 1% 20ml PHA 10/23/24 Complete Vial (Lidocaine Hc 09:24 I&D Set Up Bedside CPOE 10/23/24 Transmitted (Er) 09:46 Lidocaine Hcl 1% 20ml PHA 10/23/24 Complete Vial (Lidocaine Hc 10:00 Lidocaine Hcl 1% 20ml PHA 10/23/24 Complete Vial (Lidocaine Hc 10:00 Current Medications Medications (Trade) Dose Ordered Sig/Maria Esther Route PRN Reason Start Time Stop Time Status Last Admin Dose Admin Lidocaine HCl (Lidocaine HCl 1% 20ml Vial) 20 ml ONCE INJ 10/23/24 10:00 10/23/24 09:52 DC Lidocaine HCl (Lidocaine HCl 1% 20ml Vial) 20 ml ONCE ONCE INJ 10/23/24 10:00 10/23/24 10:01 DC 10/23/24 10:18 Lidocaine HCl (Lidocaine HCl 1% 20ml Vial) 20 ml STK-MED ONCE .ROUTE 10/23/24 09:24 10/23/24 09:25 DC Vital Signs Date Time Temp Pulse Resp B/P (MAP) Pulse Ox O2 Delivery O2 Flow Rate FiO2 10/23/24 08:50 97.5 88 20 145/88 97 Room Air 0 Incision and Drainage Incision and Drainage : Site: Perianal, 1 in in diameter, superficial, non tracking Blade Size: 11 I & D Procedure: no betadine prep Progress 5 mL 1% lidocaine injected. Good anesthesia. 1 cm linear laceration. Loculations broken up. Purulence drained. Total blood loss 5 mL. Patient tolerated procedure well. Total time 3 minutes. DX & DISP Disposition: Discharge Departure Impression: Primary Impression: Perianal abscess Condition: Stable Scripts Amoxicillin/Potassium Clav (Amox Tr-K Clv 875-125 mg Tab) 875 Mg-125 Mg Tablet 1 TAB PO BID for 10 Days, #20 TAB 0 Refills Prov: CATHRYN HEIN DO 10/23/24 Additional Instructions: You had an abscess that was drained here in the ER. I have prescribed Augmentin, which is antibiotic. Stop taking the other antibiotics that you were prescribed. Start with this antibiotic. You can alternate Tylenol and ibuprofen as needed for pain. These medications are [id number]. Keep the wound clean with soap and water. Follow up with your primary doctor in three days for a wound check. Referrals: NONE (PCP) CATHRYN HEIN DO Oct 23, 2024 09:40
[2024-10-23] MEDS: LIDOCAINE HCL 1% 20 ML VIAL ONE (09:54)
--- NOTE | 2024-10-23 09:54 | NUR ---
I&D SET UP IN ER [id number]
[2024-10-23] MEDS ORDERED: LIDOCAINE HCL 1% 20 ML VIAL INJ SCH (10:00)
[2024-10-23] MEDS: LIDOCAINE HCL 1% 20 ML VIAL INJ ONE (10:18)
== END 2024-10-23 10:18 | disposition home or self-care (01) ==
LOC: EDH 08:48
DX: K61.0 Anal abscess (principal); E66.9 Obesity, unspecified; Z90.49 Acquired absence of other specified parts of digestive tract
CPT/HCPCS: 46050; 99284

== ENCOUNTER 2024-12-06 20:36 | Emergency (ER) | payer SELFPAY ==
[~2024-12-06] VITALS: Ht 165.1 cm; Wt 113.4 kg
[~2024-12-06 20:36] MED LIST changes: +AMOX1TAB16 PO
[2024-12-06 20:52] VITALS: BP 131/81; PULSE 90; RESP 16; TEMP 98.1; O2SAT 98
[2024-12-06] MEDS ORDERED: SULF1TAB42 PO (21:02)
[2024-12-06] MEDS ORDERED: IBUP-2070 PO (21:02)
[2024-12-06] MEDS: HYDROcodone/APAP 5/325 1 TAB TABLET PO ONE (21:03)
[2024-12-06] MEDS: sulfaMETHOX-TMP DS 800/160 TAB PO ONE (21:03)
--- NOTE | 2024-12-06 21:04 | ERN ---
ED Note History of Present Illness Stated Complaint: ABCESS Chief Complaint: Abscess Time Seen by MD: 20:45 Time Seen by Midlevel: 21:46 Dictation: Ms. Velasco is a 34 year old female with history of morbid obesity and prediabetes who presented to the emergency department this evening for evaluation of skin infection. She that two days she noticed a small pimple to her left inner thigh. She thought there was a head to it so she scratched it off . Today there is increased surrounding erythema and warmth. There is no drainage. She states she is concerned because she has had two abscess formations in the last few months. She denies having fever, chills, shortness of breath, cough, chest pain, palpitations, edema, abdominal pain, nausea, vomiting, dysuria, diarrhea, headache, or dizziness. Allergies: Coded Allergies: No Known Drug Allergies (Unverified Allergy, Unknown, 03/28/19) Home Meds Active Scripts Amoxicillin/Potassium Clav (Amox Tr-K Clv 875-125 mg Tab) 875 Mg-125 Mg Tablet, 1 TAB PO BID for 10 Days, #20 TAB 0 Refills Prov:CATHRYN HEIN DO 10/23/24 Cephalexin Monohydrate (Keflex) 500 Mg Cap, 500 MG PO QID for 7 Days, #28 CAP Prov:LUZ DALY MD 10/22/24 Ibuprofen (Ibuprofen) 800 Mg Tablet, 800 MG PO Q8H PRN for PAIN, #30 TAB 0 Refills Prov:BRIANNE PALMA 05/13/24 Amoxicillin/Potassium Clav (Augmentin 875-125 Tablet) 1 Each Tablet, 1 EACH PO BID for 6 Days, #12 TAB 0 Refills Prov:LISA RUSSELL MD 06/05/21 Past Medical History Past Medical History: No Pertinent History Surgical History: Appendectomy, PSYCH History: no pertinent psych hx Family History: Negative Social History: Negative, Lives with family History: Not Applicable : 2 Para: 2 RN Note Reviewed/Agreed w/PFSH: Yes Review of System Dictation REVIEW OF SYSTEMS: CONSTITUTIONAL: Patient denies fevers, chills, sweats and weight changes. EYES: Patient denies any visual symptoms. EARS, NOSE, AND THROAT: No difficulties with hearing. No symptoms of rhinitis or sore throat. CARDIOVASCULAR: Patient denies chest pains, palpitations, orthopnea and paroxysmal nocturnal dyspnea. RESPIRATORY: No dyspnea on exertion, no wheezing or cough. GI: No nausea, vomiting, diarrhea, constipation, abdominal pain, hematochezia or melena. : No urinary hesitancy or dribbling. No nocturia or urinary frequency. No abnormal urethral discharge. MUSCULOSKELETAL: No myalgias or arthralgias. NEUROLOGIC: No chronic headaches, no seizures. Patient denies numbness, tingling or weakness. PSYCHIATRIC: Patient denies problems with mood disturbance. No problems with anxiety. ENDOCRINE: No excessive urination or excessive thirst. DERMATOLOGIC: Reports abscess to left inner thigh with no drainage. Onset two days ago. Now with increased pain, erythema, and warmth. Initial Vital Sign VS Vital Signs Date Time Temp Pulse Resp B/P (MAP) Pulse Ox O2 Delivery O2 Flow Rate FiO2 12/06/24 20:36 98.2 91 20 147/88 97 Room Air Physical Exam Dictation Vital signs: Reviewed. Afebrile Constitutional: Uncomfortable Head/Face: Normocephalic, atraumatic. Eyes: Periorbital areas with no swelling, redness, or edema. Lids and lashes are normal. Conjunctival injection is absent. Sclera anicteric. Pupils equal, round, reactive to light. ENT: Pinnas intact and no signs of trauma or erythema. Ear canals clear and no discharge. TMs no erythema. No nasal discharge or bleeding noted. Oropharynx with no exudate, redness, swelling, masses, exudates, or evidence of obstruction. Uvula midline. Mucous membranes moist. Neck: Trachea midline, no masses palpated, and no cervical lymphadenopathy. No swelling. Supple, full range of motion. Chest/Axilla: No tenderness, no crepitus, no paradoxical movement, no retractions. Cardiovascular: Regular rate, regular rhythm, no murmur, no gallops. Symmetric pulses. No peripheral edema. Respiratory: Respirations even and unlabored. Lung sounds clear; no wheezes, rales or rhonchi. Room air SpO2 97% Gastrointestinal: Inspection is normal. No distention is appreciated. Bowel sounds are normal. No mass or organomegaly . There is no tenderness. No rebound. No rigidity. No voluntary or involuntary guarding. No Woodson's sign. Neurological: Normal speech, gross motor function intact, gross sensory function intact. No focal weakness/Paresthesia. Musculoskeletal/Extremities: All extremities have full range of motion, no pain or tenderness on palpation. Symmetric pulses. Integumentary: Intact. Skin is normal color, warm and dry. Cap refill less than 2 seconds. There is a 3 x 3 cm area of induration, warmth, and tenderness to the left inner thigh. There is no fluctuance or drainage. The skin is intact. There is no streaking or lymphadenopathy. No signs of necrosis. ED Course ED Course Vital Signs Date Time Temp Pulse Resp B/P (MAP) Pulse Ox O2 Delivery O2 Flow Rate FiO2 12/06/24 20:36 98.2 91 20 147/88 97 Room Air Uneventful ED course. Vital signs stable; afebrile and normotensive with room air SpO2 97%. Patient complaining of pain 9/10 to the left inner thigh. Abscess formation/cellulitis to left inner thigh noted. No fluctuation appreciated at this time. She received dose [place] for discomfort as well as initial dose antibiotics; Bactrim DS. Findings were discussed with patient. Discussed at length care/prevention. All questions were answered. Medical Decision Making MDM MDM: Differential diagnosis: Abscess, insect bite, cellulitis Rationale: Tests considered and ordered secondary to shared decision making include: Examination Previous outside records reviewed: Old ER visits. Risk of complication and/or morbidity or mortality of patient management: None Medications-Per medication reconciliation Need for hospitalization: Patient does not meet criteria for hospitalization. Need for emergency major/minor surgery: No There are no social concerns with this patient. Prescription drug management Bactrim DS, ibuprofen Prescriptions will include symptomatic care Patient's prior external medical records from other ER visits were reviewed by me as indicated. Prior testing and results from previous visits were reviewed. Prior tests were taken into account with medical decision making and resource utilization, independent historian/historians were used to obtain complete medical history. I independently interpreted the test that were performed, results were reviewed by me and considered findings on radiology if ordered. Medical management and examination interpretation discussions were had by me with other qualified healthcare professionals as indicated for the patient's care. DX & DISP Disposition: Discharge Departure Impression: Primary Impression: Abscess of left thigh Condition: Stable Scripts Sulfamethoxazole/Trimethoprim (Bactrim Ds Tablet) 800 Mg-160 Mg Tablet 1 TAB PO BID for 7 Days, #14 TAB 0 Refills Prov: EMMA HARPER NP 12/06/24 Ibuprofen (Ibuprofen) 600 Mg Tablet 600 MG PO Q6H PRN for PAIN, #12 TAB 0 Refills Prov: EMMA HARPER NP 12/06/24 Additional Instructions: Take all prescribed medications/antibiotic as directed. May take ibuprofen or [id number] Tylenol as needed for discomfort. Apply warm compresses (clean cloth and warm water) 3-4 times daily times 15-20 minutes. Keep the area clean and uncovered or covered loosely with a dry dressing. Avoid squeezing and poking the area. Good hand hygiene; wash hands frequently. Take photos of lesion daily to monitor for worsening/improvement. Watch for worsening redness, swelling new drainage, fever, chills, red streaks moving away from the area, or increased pain. Follow up with your PCP in the next two days. Return to the emergency department for any worsening of symptoms or concerns. Referrals: NONE (PCP) Time of Disposition: 21:04 EMMA HARPER NP December 06, 2024 21:04
--- NOTE | 2024-12-07 14:28 | NUR ---
PT CALLED ASKING IF WE COULD SEND HER PRESCRIPTION TO [facility] ([facility]) D/T [facility] BEING CLOSED. PER DR HEIN, HE OK'D THE TRANSFER AND GAVE HIS NPI NUMBER. [facility] PHARMACIST TOOK THE ORDER. NO NEW ALLERGIES. BACTRIM DS i PO BID X 7 DAYS (14 TABS) AND IBUPROFEN 600MG i PO Q 6HRS PRN PAIN (12 TABS) WERE CALLED AND CONFIRMED.
== END 2024-12-06 21:13 | disposition home or self-care (01) ==
LOC: EDH 20:36
DX: L02.416 Cutaneous abscess of left lower limb (principal); Z90.49 Acquired absence of other specified parts of digestive tract; Z79.899 Other long term (current) drug therapy
CPT/HCPCS: 99283

== ENCOUNTER 2025-02-15 18:08 | Emergency (ER) | payer SELFPAY ==
[~2025-02-15] VITALS: Ht 165.1 cm; Wt 113.4 kg
[~2025-02-15 18:08] MED LIST changes: +IBUP-2070 PO; +SULF1TAB42 PO
--- NOTE | 2025-02-15 18:28 | ERN ---
ED Note History of Present Illness Stated Complaint: RT GLUTEAL ABSCESS Chief Complaint: Abscess Time Seen by MD: 18:11 Time Seen by Midlevel: 18:11 Dictation: The patient is a 34-year-old female with a history of prediabetes who presents to the emergency department with complaints of abscess to right gluteal area onset two days ago. Patient denies any fevers. Allergies: Coded Allergies: No Known Drug Allergies (Unverified Allergy, Unknown, 03/28/19) Home Meds Active Scripts Sulfamethoxazole/Trimethoprim (Bactrim Ds Tablet) 800 Mg-160 Mg Tablet, 1 TAB PO BID for 7 Days, #14 TAB 0 Refills Prov:EMMA HARPER NP 12/06/24 Ibuprofen (Ibuprofen) 600 Mg Tablet, 600 MG PO Q6H PRN for PAIN, #12 TAB 0 Refills Prov:EMMA HARPER NP 12/06/24 Amoxicillin/Potassium Clav (Amox Tr-K Clv 875-125 mg Tab) 875 Mg-125 Mg Tablet, 1 TAB PO BID for 10 Days, #20 TAB 0 Refills Prov:CATHRYN HEIN DO 10/23/24 Cephalexin Monohydrate (Keflex) 500 Mg Cap, 500 MG PO QID for 7 Days, #28 CAP Prov:LUZ DAYL MD 10/22/24 Ibuprofen (Ibuprofen) 800 Mg Tablet, 800 MG PO Q8H PRN for PAIN, #30 TAB 0 Refills Prov:BRIANNE PALMA 05/13/24 Amoxicillin/Potassium Clav (Augmentin 875-125 Tablet) 1 Each Tablet, 1 EACH PO BID for 6 Days, #12 TAB 0 Refills Prov:LISA RUSSELL MD 06/05/21 Past Medical History Past Medical History: No Pertinent History Surgical History: Appendectomy, Family History: Negative Social History: Negative, Lives with family History: Not Applicable LMP: Jan 20, 2025 : 2 Para: 2 RN Note Reviewed/Agreed w/PFSH: Yes Review of System Dictation Constitutional: Negative for fever,chills, and weight loss Eyes: Negative for injury, pain,redness, and discharge ENT: Negative for injury,pain or swelling Cardiovascular: Negative for chest pain, palpitations, and edema Respiratory: Negative for shortness of breath, cough, and wheezing, Abdomen/GI: Negative for abdominal pain, nausea, vomiting, diarrhea, and constipation Back: Negative for injury and pain : Negative for injury, bleeding and discharge MS/Extremity: Negative for injury and deformity Skin: Negative for rash, and discoloration positive for erythema, induration Neuro: Negative for headache, weakness, numbness, tingling, and seizure Psych: Negative for suicide ideation, homicidal ideation, and hallucinations Initial Vital Sign VS Vital Signs Date Time Temp Pulse Resp B/P (MAP) Pulse Ox O2 Delivery O2 Flow Rate FiO2 02/15/25 18:09 99.3 99 135/73 100 Room Air 0 02/15/25 19:56 16 21 Physical Exam Dictation Vital Signs reviewed General Appearance: Alert, oriented x 3, no acute distress, well developed, nourished. Head and Face: non-traumatic. Eyes: PERRL, pink conjunctivas, eyelid no trauma, anterior chamber with arcus senilis. Ears: Pinnas intact and no signs of trauma or erythema ear canals clear and no discharge TM no erythema Nose: No discharge, no bleeding. Oropharynx: Mouth normal, tongue pink. pharynx clear,no erythema, tonsils no exudates, no abscesses noted, mucous membrane moist Neck: Supple, non-tender, no thyromegaly, no masses, no JVD, no bruits Breast:Deferred Chest:No tenderness, no crepitus, no paradoxical movement, no retractions Lungs:Clear, well-ventilated, symmetric, no rales, no wheezing, no rhonchi, no stridor, good breath sounds bilaterally Heart: Regular rate, regular rhythm, no murmur, no gallops Vascular: no peripheral edema, Abdomen: Soft, positive bowel sounds, nondistended, no guarding, nontender, no rebound, no masses no hepatomegaly, no splenomegaly, no Woodson's sign, no hernias. Rectal: Deferred Genital: Deferred Neurological: Normal speech, motor function intact, sensory function intact Musculoskeletal: Neck nontender, full range of motion, back nontender, full range of motion, Extremities: nontender, full range of motion Skin: Color pink, dry, no turgor, no rash, no lacerations, no abrasions, no contusions. Small induration and erythema noted to right gluteal area, perirectal area with no wounds. No drainage Lymphatic: Deferred Results (Laboratory/Radiology) Laboratory/Radiology Laboratory Tests Test 02/15/25 18:52 White Blood Count 9.7 K/uL (4.8-10.8) Red Blood Count 4.71 MIL/uL (4.00-5.50) Hemoglobin 14.3 g/dL (12.0-16.0) Hematocrit 42.4 % (36-48) Mean Corpuscular Volume 90.0 fL (79-99) Mean Corpuscular Hemoglobin 30.4 pg (27.0-33.0) Mean Corpuscular Hemoglobin Concent 33.7 g/dL (32.0-36.0) Red Cell Distribution Width 12.8 % (11.0-15.5) Platelet Count 268 K/uL (130-400) Mean Platelet Volume 10.2 fL (7.5-10.5) Immature Granulocyte % (Auto) 0.3 % (0-1) Neutrophils (%) (Auto) 69.0 % (40.0-77.0) Lymphocytes (%) (Auto) 22.6 % (21.0-51.0) Monocytes (%) (Auto) 6.7 % (3.0-13.0) Eosinophils (%) (Auto) 1.1 % (0.0-8.0) Basophils (%) (Auto) 0.3 % (0.0-5.0) Neutrophils # (Auto) 6.7 K/uL (1.8-7.7) Lymphocytes # (Auto) 2.2 K/uL (1.0-4.8) Monocytes # (Auto) 0.7 K/uL (0.1-1.0) Eosinophils # (Auto) 0.11 K/uL (0.00-0.70) Basophils # (Auto) 0.03 K/uL (0.00-0.20) Absolute Immature Granulocyte (auto 0.03 K/uL (0-1) Nucleated Red Blood Cells 0.0 % (0.0-0.19) Sodium Level 139 mmol/L (136-145) Potassium Level 3.7 mmol/L (3.5-5.1) Chloride Level 107 mmol/L (101-111) Carbon Dioxide Level 25 mmol/L (21-32) Blood Urea Nitrogen 19 mg/dL (7-18) H Creatinine 0.5 mg/dL (0.5-1.0) Glomerular Filtration Rate Calc 126 mL/min (>90) Random Glucose 101 mg/dL (70-105) Total Calcium 8.5 mg/dL (8.5-10.1) Labs Reviewed?: Yes ED Course ED Course Orders Procedure Category Date Status Time Cbc With Differential LAB 02/15/25 Complete 18:24 Basic Metabolic Panel LAB 02/15/25 Complete 18:24 Hydrocodone/Apap PHA 02/15/25 Complete 5/325 ([place] 5/325mg) 18:30 Lidocaine Hcl 1% 20ml PHA 02/15/25 In Process Vial (Lidocaine Hc 18:30 I&D Set Up Bedside CPOE 02/15/25 Transmitted (Er) 18:24 Clindamycin 150mg Cap PHA 02/15/25 Complete (Cleocin 150mg Cap 18:30 Current Medications Medications (Trade) Dose Ordered Sig/Maria Esther Route PRN Reason Start Time Stop Time Status Last Admin Dose Admin Acetaminophen/ Hydrocodone Bitart (NORco 5/325MG) 1 tab ONCE ONCE PO 02/15/25 18:30 02/15/25 18:31 DC 02/15/25 19:47 Clindamycin HCl (Cleocin 150mg Cap) 300 mg ONCE ONCE PO 02/15/25 18:30 02/15/25 18:31 DC 02/15/25 19:47 Lidocaine HCl (Lidocaine HCl 1% 20ml Vial) 10 ml ONCE INJ 02/15/25 18:30 03/17/25 18:29 Vital Signs Date Time Temp Pulse Resp B/P (MAP) Pulse Ox O2 Delivery O2 Flow Rate FiO2 02/15/25 19:56 98.4 80 16 138/81 97 Room Air* 0 21 02/15/25 18:09 99.3 99 135/73 100 Room Air 0 Medical Decision Making MDM The patient is a 34-year-old female with a history of prediabetes who presents to the emergency department with complaints of abscess to right gluteal area onset two days ago. Patient denies any fevers. CBC showed no leukocytosis,no anemia, chemistry showed no electrolyte imbalance, normal renal function. Abscess was drained. Minimal purulent drainage noted. Patient tolerated procedure well. Patient in no acute distress, nontoxic appearance we will be discharged to follow up with PCP. Differential diagnosis: Abscess, sepsis, cellulitis Need for hospitalization: Patient does not meet criteria for hospitalization. There are no social concerns with this patient. Procedure Procedure Dictation: Verbal consent for the procedure was obtained. A timeout protocol was performed prior to initiating the procedure. The area was prepared and draped in the usual, sterile manner. The site was anesthetized with 1% lidocaine without epinephrine. A linear incision along the local skin lines was made and the purulent material expressed. The abscess was explored thoroughly and sequestered pockets were opened. Bleeding was minimal. [place] The patient tolerated the procedure well without complications. Standard post- procedure care is explained and return precautions are given. DX & DISP Disposition: Discharge Departure Impression: Primary Impression: Abscess, gluteal, right Condition: Stable Scripts Clindamycin HCl (Clindamycin HCl) 300 Mg Capsule 1 CAP PO QID for 10 Days, #40 CAP 0 Refills Prov: RONI OROURKE 02/15/25 Additional Instructions: Your labs were unremarkable. Please take your antibiotics as prescribed. Change your dressing becomes soiled and daily. If symptoms worsens please return to ER. FOLLOW-UP WITH PRIMARY CARE PROVIDER IN 1 TO 2 DAYS. TAKE MEDICATIONS DIRECTED HERE IN THE EMERGENCY ROOM. OKAY TO CONTINUE HOME MEDICATIONS UNLESS OTHERWISE DISCUSSED DURING YOUR VISIT IN THE EMERGENCY ROOM TODAY. RETURN TO YOUR NEAREST EMERGENCY ROOM IF SYMPTOMS WORSEN OR IF THERE IS NO IMPROVEMENT. CALL 911 IF YOU NEED IMMEDIATE ASSISTANCE. TAKE TYLENOL [id number] NEEDED AND IF NO CONTRAINDICATIONS ARE PRESENT. INCREASE ORAL HYDRATION. A WOUND CULTURE OR URINE CULTURE WAS ORDERED HERE IN THE EMERGENCY ROOM DEPARTMENT PLEASE FOLLOW-UP WITH PRIMARY CARE PROVIDER AND ADVISE THEM TO GET REPEAT PORTS FROM OUR FACILITY. IF YOU HAD ANY MENDY WRAP/SPLINTS THAT WERE APPLIED HERE, PLEASE DO NOT REMOVE THEM UNTIL YOU SEE YOUR PRIMARY CARE OR SPECIALTY. Referrals: SELF,REFERRAL (PCP) Time of Disposition: 20:00 I have reviewed the case, and I agree with, Diagnosis and Plan RONI OROURKE Feb 15, 2025 18:28
[2025-02-15 19:08] LABS: CREATININE 0.5 mg/dL (0.5-1.0); GLOMERULAR FILTR. RATE CALC 126.0 mL/min (>90); GLUCOSE,RANDOM 101.0 mg/dL (70-105); SODIUM SERUM 139.0 mmol/L (136-145); UREA NITROGEN, BLOOD 19.0 mg/dL (7-18)
[2025-02-15 19:13] LABS: IMMATURE GRANULOCYTE ABSOLUTE 0.03 K/uL (0-1); NUCLEATED RED BLOOD CELLS 0.0 % (0.0-0.19); PLATELET COUNT (AUTO) 268 K/uL (130-400); RED BLOOD CELL COUNT(AUTO) 4.71 MIL/uL (4.00-5.50); RED CELL DISTRIBUTION WIDTH 12.8 % (11.0-15.5); WHITE BLOOD COUNT (AUTO) 9.7 K/uL (4.8-10.8)
--- NOTE | 2025-02-15 19:29 | NUR ---
PT CARE ASSUMED AT THIS TIME
--- NOTE | 2025-02-15 19:45 | NUR ---
ED PROVIDER RONI AT BEDSIDE FOR BEDSIDE I&D. DRESSING PLACED BY ED PROVIDER. DRESSING IS CLEAN, DRY, AND INTACT. PT TOLERATED PROCEDURE WELL.
[2025-02-15] MEDS: CLINDAMYCIN 150 MG CAP PO ONE (19:47)
[2025-02-15] MEDS: HYDROcodone/APAP 5/325 1 TAB TABLET PO ONE (19:47)
[2025-02-15] MEDS: LIDOCAINE HCL 1% 20 ML VIAL INJ SCH (19:58)
[2025-02-15] MEDS ORDERED: CLIN-141 PO (20:01)
[2025-02-15 20:25] VITALS: BP 126/70; PULSE 81; RESP 17; TEMP 98.5; O2SAT 97
== END 2025-02-15 20:34 | disposition home or self-care (01) ==
LOC: EDH 18:08
DX: L02.31 Cutaneous abscess of buttock (principal); Z90.49 Acquired absence of other specified parts of digestive tract; Z79.899 Other long term (current) drug therapy
CPT/HCPCS: 10060; 36415; 80048; 85025; 99283